=== PATIENT | male | born 1985 | race African-American/Black ===

== ENCOUNTER 2022-03-12 05:34 | Emergency (ER) | payer OTHER ==
[~2022-03-12] VITALS: Ht 182.9 cm; Wt 91.0 kg
[2022-03-12 05:44] VITALS: BP 130/82
[2022-03-12] MEDS ORDERED: LIDOCAINE HCL/PF 1% 10 MG/ML 5ML VIAL INFIL ONE (07:15)
== END 2022-03-12 09:24 | disposition home or self-care (01) ==
LOC: ER 05:51
DX: S61.215A Laceration without foreign body of left ring finger without damage to nail, initial encounter (principal); X58.XXXA Exposure to other specified factors, initial encounter; Y93.89 Activity, other specified; Y92.89 Other specified places as the place of occurrence of the external cause; Y99.8 Other external cause status
CPT/HCPCS: 12001; 99282; J3490

== ENCOUNTER 2022-03-17 14:16 | Emergency (ER) | payer OTHER ==
[~2022-03-17] VITALS: Ht 182.9 cm; Wt 96.0 kg
[2022-03-17 14:21] VITALS: BP 145/75
== END 2022-03-17 17:33 | disposition left against medical advice (07) ==
LOC: ER 14:16
DX: Z53.21 Procedure and treatment not carried out due to patient leaving prior to being seen by health care provider (principal)

== ENCOUNTER 2022-03-17 19:00 | Emergency (ER) | payer OTHER ==
[~2022-03-17] VITALS: Ht 182.9 cm; Wt 96.0 kg
[2022-03-17 19:06] VITALS: BP 143/75
== END 2022-03-18 03:00 | disposition home or self-care (01) ==
LOC: ER 19:00
DX: Z48.02 Encounter for removal of sutures (principal)
CPT/HCPCS: 99281

== ENCOUNTER 2022-06-27 21:03 | Emergency (ER) | payer OTHER ==
[~2022-06-27] VITALS: Ht 182.9 cm; Wt 99.0 kg
[2022-06-27 21:16] VITALS: BP 142/84
[2022-06-27] MEDS ORDERED: CEPH500C2 MT (23:04)
[2022-06-27] MEDS ORDERED: SULF1TAB48 MT (23:04)
[2022-06-27] MEDS ORDERED: BO1 TP (23:11)
[2022-06-27] MEDS ORDERED: TETANUS, DIPHTHERIA, PERTUSSIS VAC/PF 0.5ML (>10YR OLD) IM ONE (23:15)
== END 2022-06-28 00:42 | disposition home or self-care (01) ==
LOC: ER 21:16
DX: S61.213A Laceration without foreign body of left middle finger without damage to nail, initial encounter (principal); X58.XXXA Exposure to other specified factors, initial encounter; Y93.89 Activity, other specified; Y92.89 Other specified places as the place of occurrence of the external cause; Y99.8 Other external cause status; Z79.899 Other long term (current) drug therapy
CPT/HCPCS: 90471; 90715; 99283

== ENCOUNTER 2024-01-23 06:07 | Emergency (ER) | payer OTHER ==
[~2024-01-23] VITALS: Ht 182.9 cm; Wt 120.0 kg
[~2024-01-23 06:07] MED LIST: BO1 TP; CEPH500C2 MT; SULF1TAB48 MT
[2024-01-23 06:14] VITALS: O2SAT 98
[2024-01-23] MEDS: LIDOCAINE 5% PATCH TOP ONE (07:27)
[2024-01-23] MEDS: KETOROLAC 30MG/ML VIAL IM ONE (07:27)
[2024-01-23] MEDS ORDERED: IBUP-2030 MT (07:43)
[2024-01-23] MEDS ORDERED: CYCL10TA21 MT (07:43)
[2024-01-23 07:54] VITALS: BP 145/87; PULSE 84; RESP 18; TEMP 98.1
== END 2024-01-23 07:53 | disposition home or self-care (01) ==
LOC: ER 06:27
DX: M54.2 Cervicalgia (principal); M54.9 Dorsalgia, unspecified; V49.9XXA Car occupant (driver) (passenger) injured in unspecified traffic accident, initial encounter; Y93.89 Activity, other specified; Y92.89 Other specified places as the place of occurrence of the external cause; Y99.8 Other external cause status
CPT/HCPCS: 72125; 72131; 96372; 99285; J1885; Z7610